=== PATIENT | female | born 2000 | race Caucasian/White ===

== ENCOUNTER 2025-04-01 23:03 | Emergency (ER) | payer OTHER ==
[2025-04-01 23:12] VITALS: BP 109/68; PULSE 79; RESP 16; TEMP 98.4; BMI 33.3
[2025-04-01] MEDS ORDERED: IBUPROFEN 400 MG TABLET (FP) PO ONE (23:12)
[2025-04-01] MEDS: IBUPROFEN 400 MG TABLET (FP) PO ONE (23:15)
== END 2025-04-02 00:24 | disposition home or self-care (01) ==
LOC: FER 23:03
DX: S93.401A Sprain of unspecified ligament of right ankle, initial encounter (principal); S93.402A Sprain of unspecified ligament of left ankle, initial encounter; X50.1XXA Overexertion from prolonged static or awkward postures, initial encounter
CPT/HCPCS: 73610-TC-LT-FY; 73610-TC-RT-FY; 99284-25